=== PATIENT | female | born 1990 | race American Indian/Alaskan Native ===

== ENCOUNTER 2017-06-26 19:15 | Emergency (ER) | payer SELFPAY ==
[2017-06-26 19:36] VITALS: TEMP 98.7
--- NOTE | 2017-06-26 19:56 | ED PDOC ---
Arrival/HPI - General Chief Complaint: Abnormal Skin Integrity Time Seen by Provider: 06/26/17 19:44 Historian: Patient - History of Present Illness Narrative History of Present Illness (Text): 06/26/17 19:52 27yo female with no PMHx present with 3days history of painful lump to her right sided neck. States her insurance is ending in 3days and she came to ED for biopsy. She denies sore throat, fever, chills, weight loss, night sweat, any other complaint. Past Medical History - Provider Review Nursing Documentation Reviewed: Yes - Psychiatric Hx Psychophysiologic Disorder: No Hx Substance Use: No Family/Social History - Physician Review Nursing Documentation Reviewed: Yes Family/Social History: Unknown Family HX Smoking Status: Never Smoked Hx Alcohol Use: No Hx Substance Use: No Allergies/Home Meds Allergies/Adverse Reactions: Allergies No Known Allergies Allergy (Verified 06/26/17 19:29) Review of Systems - Physician Review All systems were reviewed & negative as marked: Yes - Review of Systems Constitutional: Normal Eyes: Normal ENT: Normal Respiratory: Normal Cardiovascular: Normal Gastrointestinal: Normal Genitourinary Female: Normal Musculoskeletal: Normal Skin: Other (Right sided neck painful lump ) Neurological: Normal Endocrine: Normal Hemo/Lymphatic: Normal Psychiatric: Normal Physical Exam Vital Signs Reviewed: Yes Vital Signs Temp Pulse Resp BP Pulse Ox 06/26/17 20:10 80 18 110/82 100 06/26/17 19:31 98.7 F 72 16 112/73 99 Temperature: Afebrile Blood Pressure: Normal Pulse: Regular Respiratory Rate: Normal Appearance: Positive for: Well-Appearing, Non-Toxic, Comfortable Pain Distress: None Mental Status: Positive for: Alert and Oriented X 3 - Systems Exam Head: Present: Atraumatic, Normocephalic Pupils: Present: PERRL Extroacular Muscles: Present: EOMI Conjunctiva: Present: Normal Mouth: Present: Moist Mucous Membranes Neck: Present: Normal Range of Motion Respiratory/Chest: Present: Clear to Auscultation, Good Air Exchange. No: Respiratory Distress, Accessory Muscle Use Cardiovascular: Present: Regular Rate and Rhythm, Normal S1, S2. No: Murmurs Abdomen: No: Tenderness, Distention, Peritoneal Signs Back: Present: Normal Inspection Upper Extremity: Present: Normal Inspection. No: Cyanosis, Edema Lower Extremity: Present: Normal Inspection. No: Edema Neurological: Present: GCS=15, CN II-XII Intact, Speech Normal Skin: Present: Warm, Dry, Normal Color. No: Rashes Lymphatic: Present: Other (Tender and painful right sided supraclavicular node) Psychiatric: Present: Alert, Oriented x 3, Normal Insight, Normal Concentration Medical Decision Making ED Course and Treatment: 06/26/17 23:56 Pt was DC home with Amoxicillin rx. she declined medication in ED. She was advised to f/u [facility] oncologist/PMD. she was not in nay distress in ED. Disposition/Present on Arrival - Present on Arrival Any Indicators Present on Arrival: No History of DVT/PE: No History of Uncontrolled Diabetes: No Urinary Catheter: No History of Decub. Ulcer: No History Surgical Site Infection Following: None - Disposition Have Diagnosis and Disposition been Completed?: Yes Diagnosis: Lymphadenopathy Disposition: HOME/ ROUTINE Disposition Time: 19:55 Patient Plan: Discharge Condition: STABLE Discharge Instructions (ExitCare): Chronic Lymphadenitis (DC) Additional Instructions: Follow up with your Doctor Return to ED for any new or worsening symptoms Prescriptions: Amoxicillin 875 mg PO TID #21 tablet Referrals: [facility] at [facility] [Outside] - Follow up with primary Forms: [employer] (Kinyarwanda)
[2017-06-26 21:24] VITALS: BP 110/82; PULSE 80; RESP 18; O2SAT 100
== END 2017-06-26 20:10 | disposition home or self-care (01) ==
LOC: ED 19:15
DX: R59.1 Generalized enlarged lymph nodes (principal)